=== PATIENT | female | born 2000 ===

== ENCOUNTER 2025-07-12 08:30 | Outpatient (AMB) | payer OTHER, SELFPAY ==
[2025-07-12 15:59] VITALS: BMI 44.4
--- NOTE | 2025-07-12 15:59 | A.OFFVIS_ITS ---
VS Expanded 07/12/25 15:59 Height 5 ft 1 in Weight 235 lb BMI 44.4 Body Fat % 44.8 Body Fat Mass 105.2 Fat Free Mass 129.6 Visceral Fat Rating 11 Body Water Mass 93.4 Basal Metabolic Rate/Score 1,876 Intake Visit Reasons: TV PATIENT SCHEDULER [facility] *BMI 44.4* Allergies No Known Allergies Allergy (Verified 07/12/25 16:01) Medication List - Last Reconciled 07/12/25 by Santo Houser MD phentermine 37.5 mg PO DAILY HPI HPI TV PATIENT SCHEDULER [facility] *BMI 44.4*: Details: Start time: 9.00am, End time: 10am ?I spent 45 minutes speaking with the patient on the phone plus an additional 15 minutes reviewing and updating records for a total of 60 minutes HPI Comments Details: Patient is interested in non-surgical weight loss with the use of medications. PFSH Medical History (Updated 07/12/25 @ 15:57 by Santo Houser MD) Morbid obesity Surgical History Hx of section Family History (Updated 05/01/25 @ 14:41 by Giovanna Christine CMA) Mother No problems noted. Father No problems noted. Son No problems noted. Social History (Updated 05/01/25 @ 14:41 by Giovanna Christine CMA) Alcohol intake: never Patient Tobacco Use Status: Never used Tobacco Telehealth Telehealth Telehealth Platform: Telephone Location of provider rendering services: practice address Location of patient: address on file Patient Identification confirmed using: Name, : Yes Telehealth method: voice only Patient verbally consented to treatment: Yes Patient verbally consented to billing insurance company: Yes Patient informed of any privacy concerns related to visit: Yes Minutes spent on Phone/Video with Pt.: 60 Assessment & Plan Assessment & Plan (1) Morbid obesity: Code(s): E66.01 - Morbid (severe) obesity due to excess calories Category: Medical Plan: 1. We agreed to try Phentermine to facilitate weight loss. We discussed the potential side-effects of the Phentermine such as irritability, dry mouth, difficulty sleeping, dizziness, numbness in feet and high blood pressure. I asked her to get a blood pressure monitor and measure the blood pressure daily in the morning and evening. She needs to send the blood pressure readings daily and to call the office for blood pressure over 140/80 and she understands that. 2. You will receive a link of our software [employer] to generate an individualized nutritional and exercise plan specific for you. Please send me a screenshot of the plans you will generate Meal to include lean meat (beef, fish, pork, turkey, chicken), or [place] yogurt, or egg whites, or beans with a salad with olive oil and fruits (berries, pears, apples, kiwi). Avoid salt, breads, potatoes, rice, pasta, desserts. ?3. If you choose shakes, each shake would be drunk slowly, like coffee in a period of 2 hours. ?4. If you choose bars, cut each bar in 4 pieces and eat each piece in 30min ?to make each bar last 2 hours. ?5. I emphasized the importance of measuring accurately the food portion and me asure it when serving the food in plate ?6. The meal portions include a specific number of forks of meat and salad. You always eat the meat portion but you can replace up to half of salad/vegetables portion with rice, potatoes or pasta, or a fruit ?if you like. The less you do it the better weight loss will be. ?7. One full-size fork is what it can be scooped on the fork without falling aside and not what can be bit with the fork. Use regular forks like those you find in a typical restaurant. ?8.? Please buy the body composition scale we discussed and send me weight measurements as soon as possible and then once a week. Always include your diet and exercise plan. 9. The best exercise choice would be to use your treadmill at home that can track calories. You can create an exercise plan with [employer]. ?10.?It is important of avoiding and for at least 18 months postoperatively. ?11. Goal is to lose at least 1.5-2lbs per week ?12. Goal to lose at least 10% of your weight, which is about 23lbs. Minimum weight goal: 212lbs 13. Please follow the diet plan exactly without any change. If you don't like something about the plan or you feel hungry you need to communicate with me so I can help you revise the plan. You should not change the plan yourself. Medications: New phentermine must administer 30 minutes before or 1-2 hours after breakfast 37.5 mg PO DAILY 30 caps 0RF E66.01 - Morbid (severe) obesity due to excess calories
== END 2025-07-12 16:11 | disposition home or self-care (01) ==
LOC: HO.HBS 08:30
PROVIDERS: Visit Provider Surgery
DX: E66.01 Morbid (severe) obesity due to excess calories (principal); Z68.41 Body mass index [BMI] 40.0-44.9, adult
CPT/HCPCS: 99205